=== PATIENT | female | born 1960 | race Caucasian/White ===

== ENCOUNTER 2017-11-11 20:52 | Inpatient (IN) | payer OTHER ==
[2017-11-11] MEDS ORDERED: ONDANSETRON 4 MG/2 ML VIAL ONE (21:41)
[2017-11-11] MEDS ORDERED: MORPHINE 4 MG/ML SYR ONE (21:41)
[2017-11-12] MEDS ORDERED: MORPHINE 4 MG/ML SYR ONE (00:16)
--- NOTE | 2017-11-12 02:40 | EDPHYS ---
Physician Documentation [facility] Name: Khushbu Jamil Age: 57 yrs Sex: Female : 1960 Arrival Date: 11/11/2017 Time: 20:53 Bed 4 Private MD: ED Physician Ramin Humphries HPI: 11/12 01:44 This 57 yrs old Female presents to ER via EMS with complaints of Fall Injury. 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 Pain rated moderate and localized to left ps1 wrist and lower extremity knee and ankle. Not on blood thinners. . Historical: - Allergies: 11/11 21:02 Sulfa (Sulfonamide Antibiotics); bb - Home Meds: 21:02 insulin pump with humalog [Active]; losartan oral oral [Active]; Metoprolol Tartrate bb Oral [Active]; levothyroxine 125 mcg tab 1 tab once daily [Active]; vit D3 [Active]; - PMHx: 21:02 Hypertension; Diabetes - IDDM; Hypothyroidism; diabetic retinopathy; bb - PSHx: 21:02 Hysterectomy; strabismus; bb - Immunization history:: Adult Immunizations up to date. - Social history:: Smoking status: Patient/guardian denies using tobacco, Patient/guardian denies using alcohol, street drugs. ROS: 11/12 01:44 Constitutional: Negative for fever, chills, and weight loss, Eyes: Negative for injury, ps1 pain, redness, and discharge, ENT: Negative for injury, pain, and discharge, Cardiovascular: Negative for chest pain, palpitations, and edema, Respiratory: Negative for shortness of breath, cough, wheezing, and pleuritic chest pain, Abdomen/GI: Negative for abdominal pain, nausea, vomiting, diarrhea, and constipation, Back: Negative for injury and pain. MS/extremity: Positive for contusion, decreased range of motion, of the left wrist, left knee, and ankle. Exam: 01:44 Constitutional: This is a well developed, well nourished patient who is awake, alert, ps1 and in no acute distress. Head/Face: Normocephalic, atraumatic. Eyes: Pupils equal round and reactive to light, extra-ocular motions intact. Lids and lashes normal. Conjunctiva and sclera are non-icteric and not injected. Neck: Trachea midline, no thyromegaly or masses palpated, and no cervical lymphadenopathy. Supple, full range of motion without nuchal rigidity, or vertebral point tenderness. No Meningismus. Chest/axilla: Normal chest wall appearance and motion. Nontender with no deformity. No lesions are appreciated. Cardiovascular: Regular rate and rhythm. No gallops, murmurs, or rubs. Normal PMI, no JVD. No pulse deficits. Respiratory: Lungs have equal breath sounds bilaterally, clear to auscultation and percussion. No rales, rhonchi or wheezes noted. No increased work of breathing, no retractions or nasal flaring. Abdomen/GI: Soft, non-tender, with normal bowel sounds. No distension or tympany. No guarding or rebound. No evidence of tenderness throughout. 01:44 Musculoskeletal/extremity: Extremities: grossly normal except: noted in the left arm: contusion, decreased ROM, pain, noted in the left knee: contusion, decreased ROM, pain. Vital Signs: 11/11 21:02 BP 155 / 76; Pulse 96; Resp 20 S; Temp 97.4(TE); Pulse Ox 100% on R/A; Weight 90.72 kg bb (R); Height 5 ft. 0 in. (152.40 cm) (R); Pain 9/10; 21:59 BP 143 / 57; Pulse 86; Resp 18; Pulse Ox 99% on NC; aa1 23:00 BP 153 / 92; Pulse 67; Resp 18; Pulse Ox 98% 0 lpm ; mg2 23:58 BP 148 / 87; Pulse 80; Resp 18; Pain 6/10; mg2 11/12 01:14 BP 154 / 60; Pulse 98; Resp 16; Pulse Ox 97% on R/A; aa1 02:08 BP 154 / 62; Pulse 91; Resp 18; Pulse Ox 96% on R/A; aa1 02:43 BP 154 / 60; Pulse 98; Resp 18; Pulse Ox 99% ; aa1 03:45 BP 162 / 66; Pulse 94; Resp 16; Pulse Ox 95% on R/A; aa1 11/11 21:02 Body Mass Index 39.06 (90.72 kg, 152.40 cm) bb MDM: 11/11 22:57 Patient medically screened. ps1 11/12 01:44 Data reviewed: vital signs, nurses notes, radiologic studies. ED course: pain ps1 controlled. Splinted with cockup splint on wrist and knee immobilizer and ortho boot on left. . 11/12 03:14 Order name: CBC with Automated Diff EDOH 11/12 03:14 Order name: CBC with Automated Diff EDOH 11/11 21:33 Order name: Forearm Left XRAY ps1 11/11 21:33 Order name: Tib Fib Left XRAY ps1 11/12 03:14 Order name: Comprehensive Metabolic Panel EDOH 11/12 03:14 Order name: Comprehensive Metabolic Panel EDOH 11/12 03:14 Order name: CONS Pharmacy Consult EDOH 11/12 03:14 Order name: Physical Therapy Consult EDOH 11/12 03:14 Order name: Regular EDOH Administered Medications: 11/11 22:00 Drug: morphine 4 mg Route: IVP; Site: right hand; mg2 23:47 Follow up: Response: No adverse reaction; Pain is decreased mg2 22:00 Drug: Zofran 4 mg Route: IVP; Site: right hand; mg2 23:46 Follow up: Response: No adverse reaction; No change in condition; Nausea is decreased mg2 11/12 00:22 Drug: morphine 4 mg Route: IVP; Site: right hand; mg2 02:46 Follow up: Response: No adverse reaction; Pain is decreased aa1 Disposition: 11/12/17 02:40 Hospitalization ordered by Melinda Whitley for Observation. Preliminary diagnosis is left distal radius fracture. left tibial plateu fracture. Inability to ambulate. . - Bed requested for Telemetry/MedSurg (observation). - Status is Observation. aa1 - Condition is Fair. - Problem is new. - Symptoms are unchanged. UTI on Admission? No Signatures: Dispatcher [employer] EDOH Shanthi Ronquillo RN RN mw Kern, Alissa, RN RN aa1 Marcia Tinajero RN RN bb Singer, Phillip, MD MD ps1 Roland Blanco RN RN mg2
--- NOTE | 2017-11-12 02:40 | ER ---
Nurse's Notes [facility] Name: Khushbu Jamil Age: 57 yrs Sex: Female : 1960 Arrival Date: 11/11/2017 Time: 20:53 Bed 4 Private MD: Diagnosis: left distal radius fracture. left tibial plateu fracture. Inability to ambulate. Presentation: 11/11 20:50 Presenting complaint: EMS states: pt was at an event outside tripped on a curb and fell bb onto her left knee and wrist now has pain and swelling to left knee and wrist pt denies LOC and did not hit her head. Transition of care: patient was not received from another setting of care. Onset of symptoms was November 11, 2017. Initial Sepsis Screen: Does the patient meet any 2 criteria? No. Patient's initial sepsis screen is negative. Does the patient have a suspected source of infection? No. Patient's initial sepsis screen is negative. Care prior to arrival: Splint applied. 20:50 Method Of Arrival: EMS: [facility] bb 20:50 Acuity: BETTIE 3 bb Historical: - Allergies: 21:02 Sulfa (Sulfonamide Antibiotics); bb - Home Meds: 21:02 insulin pump with humalog [Active]; losartan oral oral [Active]; Metoprolol Tartrate bb Oral [Active]; levothyroxine 125 mcg tab 1 tab once daily [Active]; vit D3 [Active]; - PMHx: 21:02 Hypertension; Diabetes - IDDM; Hypothyroidism; diabetic retinopathy; bb - PSHx: 21:02 Hysterectomy; strabismus; bb - Immunization history:: Adult Immunizations up to date. - Social history:: Smoking status: Patient/guardian denies using tobacco, Patient/guardian denies using alcohol, street drugs. Screenin:03 Abuse screen: Denies threats or abuse. Nutritional screening: No deficits noted. bb Tuberculosis screening: No symptoms or risk factors identified. Fall Risk Fall in past 12 months (25 points). Secondary diagnosis (15 points) impaired mobility, IV access (20 points). Ambulatory Aid- None/Bed Rest/Nurse Assist (0 pts). Gait- Impaired (20 pts.). Mental Status- Oriented to own ability (0 pts). Total Puentes Fall Scale indicates High Risk Score (45 or more points). Fall prevention measures have been instituted. Side Rails Up X 2 As available patient and family educated on Fall Prevention Program and Strategies. Assessment: 21:13 General: Appears in no apparent distress. comfortable, Behavior is calm, cooperative, mg2 appropriate for age, quiet. Pain: Complains of pain in left forearm and leg lower leg Pain currently is 10 out of 10 on a pain scale. Neuro: No deficits noted. Oriented to person, place, time, situation. Cardiovascular: Patient's skin is warm and dry. Respiratory: Airway is patent Respiratory effort is even, unlabored. Derm: Skin Skin is Skin is pink, warm \T\ dry. Musculoskeletal: with bandage on left arm and splint left leg. Injury Description:. 21:49 Reassessment: Patient appears in no apparent distress at this time. Patient and/or aa1 family updated on plan of care and expected duration. Pain level reassessed. Patient is alert, oriented x 3, equal unlabored respirations, skin warm/dry/pink. radiology at bedside for x-rays. 23:32 Reassessment: Patient and/or family updated on plan of care and expected duration. Pain mg2 level reassessed. patient sleeping comfortably on bed. 11/12 00:01 Reassessment: patient verbalizes pain in the left leg for 6/10. mg2 01:10 Reassessment: Patient appears in no apparent distress at this time. Patient and/or aa1 family updated on plan of care and expected duration. Pain level reassessed. Patient is alert, oriented x 3, equal unlabored respirations, skin warm/dry/pink. Pt awaiting splinting and reassessment. 02:44 Reassessment: patient was unable to to go down from the bed and bear weight on her own. aa1 was advised to be seen by hospitalist for possible admission. 04:23 Reassessment: Patient appears in no apparent distress at this time. Patient is alert, aa1 oriented x 3, equal unlabored respirations, skin warm/dry/pink. Report given to Vaishnavi on 2nd floor. Vital Signs: 11/11 21:02 BP 155 / 76; Pulse 96; Resp 20 S; Temp 97.4(TE); Pulse Ox 100% on R/A; Weight 90.72 kg bb (R); Height 5 ft. 0 in. (152.40 cm) (R); Pain 9/10; 21:59 BP 143 / 57; Pulse 86; Resp 18; Pulse Ox 99% on NC; aa1 23:00 BP 153 / 92; Pulse 67; Resp 18; Pulse Ox 98% 0 lpm ; mg2 23:58 BP 148 / 87; Pulse 80; Resp 18; Pain 6/10; mg2 11/12 01:14 BP 154 / 60; Pulse 98; Resp 16; Pulse Ox 97% on R/A; aa1 02:08 BP 154 / 62; Pulse 91; Resp 18; Pulse Ox 96% on R/A; aa1 02:43 BP 154 / 60; Pulse 98; Resp 18; Pulse Ox 99% ; aa1 03:45 BP 162 / 66; Pulse 94; Resp 16; Pulse Ox 95% on R/A; aa1 11/11 21:02 Body Mass Index 39.06 (90.72 kg, 152.40 cm) bb ED Course: 11/11 20:53 Patient arrived in ED. ds1 21:00 Triage completed. bb 21:02 Arm band placed on right wrist. Patient placed in an exam room, on a stretcher, on bb pulse oximetry. Affected limb iced. 21:04 Patient has correct armband on for positive identification. Bed in low position. Call bb light in reach. Side rails up X2. Pulse ox on. NIBP on. 21:07 Roland Blanco, ANITHA is Primary Nurse. mg2 21:12 Ramin Humphries MD is Attending Physician. ps1 21:13 Warm blanket given. mg2 21:37 No provider procedures requiring assistance completed. Inserted saline lock: 22 gauge mg2 in right hand, using aseptic technique. 22:08 Forearm Left XRAY In Process Unspecified. EDMS 22:08 Tib Fib Left XRAY In Process Unspecified. EDMS 11/12 01:35 Jose J wrap to left wrist pre-formed cock-up splint applied to L wrist. aa1 02:25 Knee immobilizer applied on right knee. ortho boots on the right leg. aa1 02:39 Melinda Whitley MD is Hospitalizing Provider. ps1 04:23 Patient admitted, IV remains in place. aa1 Administered Medications: 11/11 22:00 Drug: morphine 4 mg Route: IVP; Site: right hand; mg2 23:47 Follow up: Response: No adverse reaction; Pain is decreased mg2 22:00 Drug: Zofran 4 mg Route: IVP; Site: right hand; mg2 23:46 Follow up: Response: No adverse reaction; No change in condition; Nausea is decreased mg2 11/12 00:22 Drug: morphine 4 mg Route: IVP; Site: right hand; mg2 02:46 Follow up: Response: No adverse reaction; Pain is decreased aa1 Outcome: 02:40 Decision to Hospitalize by Provider. ps1 04:23 Admitted to Med/surg accompanied by tech, via stretcher, room 207, with chart, Report aa1 called to Vaishnavi 04:23 Condition: good 04:23 Instructed on the need for admit, Demonstrated understanding of instructions. 04:27 Patient left the ED. aa1 Signatures: Dispatcher [employer] EDMS Viktoriya Murrieta RN RN aa1 Sharla Edwards ds1 Marcia Tinajero RN RN bb Ramin Humphries MD MD ps1 Roland Blnaco RN RN mg2 Corrections: (The following items were deleted from the chart) 11/11 21:08 21:02 BP 155 / 76; Pulse 96bpm; Resp 100bpm; Spontaneous; Pulse Ox 100% RA; Temp 97.4F bb Temporal; 90.72 kg Reported; Height 5 ft. 0 in. Reported; BMI: 39.0; Pain 9/10; bb
[2017-11-12] MEDS ORDERED: ACETAMINOPHEN 500 MG TAB PO PRN (03:12)
[2017-11-12] MEDS ORDERED: MORPHINE 2 MG/ML SYR IV PRN (03:12)
[2017-11-12] MEDS: NA CHLORIDE 0.9% 1,000 ML IV SCH ×2 (04:24→17:45)
[2017-11-12] MEDS ORDERED: Morphine 2 MG/2 ML SYR IV PRN (05:00)
[2017-11-12] MEDS: Morphine 2 MG/2 ML SYR IV PRN ×5 (05:13→21:28)
[2017-11-12] MEDS: ONDANSETRON 4 MG/2 ML VIAL IV PRN ×2 (05:13→08:50)
[2017-11-12 05:53] LABS: Urine Appearance CLEAR; Urine Bilirubin NEGATIVE (NEG); Urine Blood 1+ (NEG); Urine Color YELLOW; Urine Glucose 3+ (NEG); Urine Protein NEGATIVE (NEG); Urine Specific Gravity >=1.030 (1.005-1.030); Urine pH 5.5 (5.0-7.0)
[2017-11-12 05:54] LABS: Urine Microscopic Reflex ORDER UMIC
[2017-11-12] MEDS ORDERED: LEVOTHYROXINE SOD 0.088 MG TAB PO SCH (06:00)
[2017-11-12] MEDS: LEVOTHYROXINE SOD 0.125 MG TAB PO SCH (06:13)
[2017-11-12 06:15] LABS: Absolute Lymphocytes (CBC) 1.5 K/uL (0.7-4.9); Absolute Monocytes 0.8 K/uL (0.1-1.3); Absolute Neutrophil 9.1 K/uL (1.8-8.0); Basophils % 0.5 % (0-1.3); Eosinophils % 0.3 % (0-4.4); Hematocrit 33.7 % (36.0-45.0); Lymphocytes % 13.2 % (15.3-44.8); MCV 87.3 fL (80-100); MPV 10.9 fL (7.6-11.3); Monocytes % 7.1 % (3.3-12.3); RBC Red Blood Cell Count 3.86 M/uL (3.86-4.86)
[2017-11-12 06:20] LABS: Urine Bacteria <20 /HPF (<20); Urine RBC <5 /HPF (NONE SEEN)
[2017-11-12 06:21] LABS: Urine Culture Reflex Order NOT NEEDED
[2017-11-12 07:02] LABS: Albumin 3.7 g/dL (3.2-5.5); Potassium 4.5 mEq/L (3.6-5.0); Protein, Total 6.6 g/dL (6.0-8.3)
--- NOTE | 2017-11-12 08:44 | P.HP ---
Certification for Inpatient Patient admitted to: Observation With expected LOS: <2 Midnights Patient will require the following post-hospital care: None Practitioner: I am a practitioner with admitting privileges, knowledge of patient current condition, hospital course, and medical plan of care. Services: Services provided to patient in accordance with Admission requirements found in Title 42 Section 412.3 of the Code of Federal Regulations Patient History Date of Service: 11/12/17 Reason for admission: status post fall with radial fracture and tibial plateau fracture History of Present Illness: Patient is a 57-year-old female who presents to the hospital after falling. Patient was at the [employer] listening to a [employer]. The left half way through the concert and when they were turning a corner she slipped on a curb and fell on her left side. She suffered a distal left radial fracture as well as a left tibial plateau fracture. Her left leg was immobilized and she had a splint placed on her left upper extremity. Patient will be admitted to the hospital for further evaluation to assist with discharge planning. Patient tried to walk in the emergency room but was unable to ambulate. She will either need a specialized crutch or a wheelchair to get around. She will need DVT prophylaxis and strict blood pressure control. Anticipate discharge home in 24-48 hours. Allergies Sulfa (Sulfonamide Antibiotics) Allergy (Intermediate, Verified 11/12/17 05:28) Shortness of breath Home Medications: Cholecalciferol (Vitamin D3) [Vitamin D3] 1,000 unit PO DAILY 06/02/15 Losartan Potassium [Cozaar] 100 mg PO DAILY 06/02/15 Metoprolol Tartrate [Lopressor] 25 mg PO BID 06/02/15 Insulin Lispro [Humalog*] See Protocol SQ ACHS 11/12/17 Levothyroxine [Synthroid] 125 mcg PO [id number] 11/12/17 Omeprazole [Prilosec] 40 mg PO DAILY 11/12/17 - Past Medical/Surgical History Has patient received pneumonia vaccine in the past: Yes Diabetic: Yes -: HTN -: DM -: Hypothyroidism -: Diabetic Retinopathy -: Macular Edema -: Hysterectomy -: Strabismus - Family History Mother Medical History: Kidney disease Father Medical History: Lung disease Notes: COPD Brother Medical History: Cancer Notes: bladder cancer and Hep C - Social History Smoking Status: Never smoker Alcohol use: No CD- Drugs: No Caffeine use: Yes Place of Residence: Home Review of Systems 10-point ROS is otherwise unremarkable Physical Examination - Vital Signs Temperature: 98.3 F Blood Pressure: 130/58 Pulse: 113 Respirations: 16 Pulse Ox (%): 96 - Physical Exam General: Alert, In no apparent distress, Oriented x3 HEENT: Atraumatic, PERRLA, Mucous membr. moist/pink, EOMI, Sclerae nonicteric Neck: Supple, 2+ carotid pulse no bruit, No LAD, Without JVD or thyroid abnormality Respiratory: Clear to auscultation bilaterally, Normal air movement Cardiovascular: Regular rate/rhythm, Normal S1 S2, No murmurs Gastrointestinal: Normal bowel sounds, Soft and benign, Non-distended, No tenderness Musculoskeletal: No tenderness Integumentary: No rashes Neurological: Normal gait, Normal speech, Normal strength at 5/5 x4 extr, Normal tone, Sensation intact, Cranial nerves 3-12 intact, Normal affect Lymphatics: No axilla or inguinal lymphadenopathy Assessment & Plan - Problems (Diagnosis) (1) Status post fall Current Visit: Yes Status: Acute (2) Left medial tibial plateau fracture Current Visit: Yes Status: Acute (3) Fracture of left distal radius Current Visit: Yes Status: Acute (4) History of hypertension Current Visit: Yes Status: Acute - Plan Plan: 1. IV hydration 2. Pain control 3. monitor vital signs closely 4. Monitor H&H and renal function 5. Physical therapy evaluation 6. Orthopedic evaluation 7. Crutch training 8. GI and DVT prophylaxis Discharge Plan: Home Plan to discharge in: Greater than 2 days - Advance Directives Does patient have a Living Will: No Does patient have a Durable POA for Healthcare: No - Code Status/Comfort Care Code Status Assessed: Yes Code Status: Full Code Critical Care: No Time Spent Managing PTS Care (In Minutes): 45
[2017-11-12] MEDS: LOSARTAN POTASSIUM 50 MG TABLET PO SCH (08:50)
[2017-11-12] MEDS: METOPROLOL TAR 25 MG TAB PO SCH ×2 (08:50→21:27)
[2017-11-12] MEDS: VITAMIN D 1000 UNIT TAB PO SCH (08:51)
[2017-11-12] MEDS: ENOXAPARIN 30 MG/0.3 ML SQ SCH ×2 (10:00→21:28)
--- NOTE | 2017-11-12 10:46 | RAD REPORT ---
EXAM DESCRIPTION: RAD - Tib Fib Left - 11/11/2017 10:10 pm CLINICAL HISTORY: Fall, knee pain COMPARISON: None. FINDINGS: Lucency is present involving the lateral tibial plateau with cortical irregularity, compat ible with a tibial plateau fracture. Moderate joint effusion is suspected. IMPRESSION: Nondisplaced tibial plateau fracture.
--- NOTE | 2017-11-12 10:47 | RAD REPORT ---
EXAM DESCRIPTION: RAD - Forearm Left - 11/11/2017 10:09 pm CLINICAL HISTORY: Fall, wrist pain COMPARISON: None. FINDINGS: Impacted fracture of the distal radial metaphysis is noted. No dislocation is seen.
--- NOTE | 2017-11-12 16:33 | P.CNS ---
Date of Consult: 11/12/17 Reason for Consult: tibia fracture Chief Complaint: status post fall with radial fracture and tibial plateau fracture History of Present Illness: 57 y/o female was in the [place] she rtipped on the curb and had severe pain in her left tibia and left wrist, agricultural economics professor found her and called EMS, she was seen in the ED and diagnosed with a tibial plateau fracture and left distal radius fracture. she is in a knee immobilizer. her pain is 7/10 she has a lef t wrist splint Allergies Sulfa (Sulfonamide Antibiotics) Allergy (Intermediate, Verified 11/12/17 05:28) Shortness of breath Home Medications: Cholecalciferol (Vitamin D3) [Vitamin D3] 1,000 unit PO DAILY 06/02/15 Losartan Potassium [Cozaar] 100 mg PO DAILY 06/02/15 Metoprolol Tartrate [Lopressor] 25 mg PO BID 06/02/15 Insulin Lispro [Humalog*] See Protocol SQ ACHS 11/12/17 Levothyroxine [Synthroid] 125 mcg PO [id number] 11/12/17 Omeprazole [Prilosec] 40 mg PO DAILY 11/12/17 - Past Medical/Surgical History Diabetic: Yes -: HTN -: DM -: Hypothyroidism -: Diabetic Retinopathy -: Macular Edema -: Hysterectomy -: Strabismus - Family History Mother Medical History: Kidney disease Father Medical History: Lung disease Notes: COPD Brother Medical History: Cancer Notes: bladder cancer and Hep C - Social History Alcohol use: No CD- Drugs: No Caffeine use: Yes Place of Residence: Home Review of Systems 10-point ROS is otherwise unremarkable Physical Examination Temp Pulse Resp BP Pulse Ox 98.8 F 118 H 16 126/57 L 92 11/12/17 12:00 11/12/17 12:00 11/12/17 12:00 11/12/17 12:00 11/12/17 12:00 General: Alert, In no apparent distress, Oriented x3 HEENT: Atraumatic, Normocephalic Neck: Supple Respiratory: Normal air movement Capillary refill: <2 Seconds Gastrointestinal: Soft and benign Musculoskeletal: Other (left proximal tibia pain and left wrist pain) Imagings Data: 4 v left tibia- non displaced tibial plateau fracture in the medial compartment of the left knee, intra articular. left rrist 2 v- fracture distal radius non-displaced, impacted - Problems (1) Fracture of left distal radius Onset Date: 11/11/17 Current Visit: Yes Status: Acute Plan: PT will work with her on mobility with wither a platform walker or wheelchair non weight baring on the left leg and wrist. we will treat her out patient. follow up in the office in 1 week. she can be discharged now. (2) Left medial tibial plateau fracture Current Visit: Yes Status: Acute
--- NOTE | 2017-11-12 21:13 | HP ---
Date of Admission: 11/12/2017 Chief Complaint: Fall and injury. History Of Present Illness: This is a 57-year-old female patient of mine, who was at a local event a t a concert and she actually was walking outside the [facility] and her shoe got caugh t on a sidewalk area, she lost her balance, and fell forward. She injured her left upper and left lo wer extremity. Her was with her and there were 2-3 other people close by, they all tried to help her to get up. She was not able to get up, so ambulance was called and she was brought into the emergency room. After workup done in the emergency room, she was admitted to the hospital. I saw h er this morning before this visit. She was in her room lying in bed, not in any distress. She denie s any head injury or any loss of consciousness. Medications: List reviewed. Review of Systems: Musculoskeletal: As mentioned above. All other systems reviewed and negative. Allergies: TO SULFA. Past Medical History: Hypertension, type 1 diabetes mellitus, diabetic retinopathy, and hypothyroidi sm. Past Surgical History: Significant for eye surgery and hysterectomy. Family History: Not pertinent. Social History: Negative for smoking and alcohol use. Physical Examination: Vital Signs: Height 5 feet, weight 205 pounds. Last temperature 98.3, pulse 113, respiratory rate 1 6, blood pressure 130/58. Oxygen saturation 96%. General: Awake, alert, oriented, not in distress. HEENT: Head atraumatic, normocephalic. Conjunctivae nonerythematous. Sclerae white. Mouth, no thr ush or edema noted. Ears/Nose, no mass, lesion, discharge noted. Neck: Supple. No JVD, lymph nodes, bruit, thyromegaly noted. Lungs: Bilateral good equal air entry. Clear to auscultation. No rhonchi. No rales. Heart: Normal heart sounds, no murmur or gallop. Abdomen: Soft, bowel sounds normal. No guarding, rigidity, tenderness, mass, hepatosplenomegaly, dis tention, or bruit noted. Extremities: Left upper and left lower extremity has dressing present. Skin: No rash, ulcer, cellulitis. Lymphatics: No lymph node enlargement in neck, supraclavicular, infraclavicular region. Neuro: No focal neurological deficit. Chest: Unremarkable. External Genitalia: Deferred. Rectal: Deferred. Laboratory Data: White count 11.5, hemoglobin 11.2, platelets 260. Sodium 133, potassium 4.5, chlor ziggy 103, bicarb 26, BUN 23, creatinine 0.80, glucose 222. Liver function tests unremarkable. Hemogl obin A1c pending. Urinalysis; negative except 1+ blood, 1+ ketones, 3+ glucose. Impression: 1.Fracture of left tibial plateau. 2.Fracture of left distal radius. 3.Anemia, unspecified. 4.Hyponatremia. 5.Type 1 diabetes mellitus, uncontrolled. 6.Hypertension. 7.Hypothyroidism. Plan: Admit the patient to hospital for further evaluation and management of this problem. The bladimir ent is appropriate for inpatient and is expected to spend 2 midnights in hospital. We will go ahead and consult orthopedic surgeon. Continue home medications per order. DVT prophylaxis will be given using Lovenox. The patient will be treated with conservative treatment unless Orthopedic surgeon has recommendation for surgery. We will consult physical therapy, occupational therapy and I will see er tomorrow for followup. She is on insulin pump at home and this is being controlled by her diabete s specialist and she does not know exact dose on basal insulin but mealtime insulin bolus, she is not sure but she takes either 15 or 20 units of insulin at meal time per carb count and I have advised h er that she needs to look into it exactly how much insulin she takes at mealtime and she should cut b ack 5 units from her dose, so if she is taking 20 units then she will take 15 units and if she is mare ing 15 units she will take only 10 units and she verbalized understanding. She checks her blood suga r before each meal and at bedtime. She will continue to do so. She has her glucometer with her and she will also check her blood sugar on a p.r.n. basis in the event if she has any symptoms indicating hypoglycemia. She was advised to notify nurse right away if she has any hypoglycemia problem so sallie t way nursing staff can assist her with treatment of hypoglycemia and I have also ordered nursing sta ff to document the patient's blood sugar readings a.c. and at bedtime and treat hypoglycemia per prot ocol if that happens. I will see her tomorrow for followup. SERGIO/MODL Voice ID: [id number]
[2017-11-12] MEDS: DOCUSATE NA 100 MG CAP PO SCH (21:28)
[2017-11-13] MEDS: Morphine 2 MG/2 ML SYR IV PRN ×2 (01:10→05:47)
[2017-11-13] MEDS: LEVOTHYROXINE SOD 0.125 MG TAB PO SCH (05:46)
[2017-11-13] MEDS: NA CHLORIDE 0.9% 1,000 ML IV SCH ×2 (05:47→19:57)
[2017-11-13 07:46] LABS: A1c Component 0.6 mg/dL
[2017-11-13] MEDS: HYDROCODONE/APAP 10/325 TAB PO PRN ×3 (08:47→21:09)
[2017-11-13] MEDS: DOCUSATE NA 100 MG CAP PO SCH ×2 (08:48→21:09)
[2017-11-13] MEDS: VITAMIN D 1000 UNIT TAB PO SCH (08:48)
[2017-11-13] MEDS: LOSARTAN POTASSIUM 50 MG TABLET PO SCH (08:48)
[2017-11-13] MEDS: METOPROLOL TAR 25 MG TAB PO SCH ×2 (08:48→20:38)
[2017-11-13] MEDS: ENOXAPARIN 30 MG/0.3 ML SQ SCH ×2 (08:49→21:09)
--- NOTE | 2017-11-13 14:12 | PN ---
Date of Progress Note: 11/13/2017 Subjective: The patient was seen this morning for followup. Lying in bed, not in any distress. No new complaints or problems reported by patient except complaining of pain in her left upper and left lower extremity. After I saw her yesterday, the patient's day was unremarkable. She has not gotten out of bed as Physical Therapy or Occupational Therapy has not come by to evaluate her. Dr. Pate 's physician employment assistant came by to see the patient and has suggested for patient to have nonweightbear ing to lower extremity and follow up at office in 1 week. Objective: Vital Signs: Reviewed. HEENT: Examination unremarkable. Lungs: Clear to auscultation. Heart: Sounds normal. Abdomen: Soft, bowel sounds normal. No guarding, rigidity, tenderness, or distention. Extremities: No edema of right leg, left upper and left lower extremity. Lower extremity knee immob ilizer present, left upper extremity. Partial cast with dressing present. Impression: 1.Fracture of left distal radius and fracture of left tibial plateau. 2.Type 1 diabetes mellitus. 3.Hypertension. Plan: We will continue current medications. Continue pain medication. DVT prophylaxis with Lovenox . The patient is at high risk from having DVT, and so we will have to continue Lovenox at least for 4-6 weeks and I did talk to her about that. The patient lives at home. Her does not work, s o he might be able to help her out depending on his physical health. We will have to have social wor ker help make arrangements for patient discharge planning if she can go home with some help at home, and the most important thing is we need therapy's evaluation and recommendation. If the patient will be able to ambulate considering nonweightbearing of the left lower extremity or she will have to sta y in wheelchair until her weight bearing status is changed by orthopedic surgeon in the future. I will see her tomorrow for followup. SERGIO/MODL Voice ID: [id number] Report ID: [id number]
[2017-11-14] MEDS: HYDROCODONE/APAP 10/325 TAB PO PRN ×4 (02:57→21:02)
[2017-11-14 05:09] VITALS: BMI 37.3
[2017-11-14] MEDS: LEVOTHYROXINE SOD 0.125 MG TAB PO SCH (05:35)
[2017-11-14 08:04] LABS: Absolute Lymphocytes (CBC) 2.4 K/uL (0.7-4.9); Absolute Monocytes 0.7 K/uL (0.1-1.3); Absolute Neutrophil 2.8 K/uL (1.8-8.0); Basophils % 1.3 % (0-1.3); Eosinophils % 4.4 % (0-4.4); Hematocrit 34.4 % (36.0-45.0); Lymphocytes % 38.2 % (15.3-44.8); MCV 87.5 fL (80-100); MPV 10.3 fL (7.6-11.3); Monocytes % 11.3 % (3.3-12.3); RBC Red Blood Cell Count 3.94 M/uL (3.86-4.86)
[2017-11-14 08:47] LABS: Bicarbonate 26 mEq/L (21-31); Glucose Level 61 mg/dL (65-120); Potassium 3.6 mEq/L (3.6-5.0); Sodium Level 139 mEq/L (135-145)
[2017-11-14 08:48] LABS: BUN Blood Urea Nitrogen 10 mg/dL (6-20); Magnesium 1.9 mg/dL (1.8-2.5)
[2017-11-14] MEDS: ENOXAPARIN 40 MG/0.4 ML SQ SCH (09:02)
[2017-11-14] MEDS: LOSARTAN POTASSIUM 50 MG TABLET PO SCH (09:02)
[2017-11-14] MEDS: METOPROLOL TAR 25 MG TAB PO SCH ×2 (09:02→21:03)
[2017-11-14] MEDS: DOCUSATE NA 100 MG CAP PO SCH ×2 (09:02→21:03)
[2017-11-14] MEDS: VITAMIN D 1000 UNIT TAB PO SCH (09:02)
--- NOTE | 2017-11-14 11:56 | P.PN ---
Subjective Date of Service: 11/14/17 Chief Complaint: status post fall with radial fracture and tibial plateau fracture Subjective: No new changes, No C/O voiced Review of Systems 10-point ROS is otherwise unremarkable Physical Examination - Vital Signs Temperature: 97.5 F Blood Pressure: 138/62 Pulse: 91 Respirations: 18 Pulse Ox (%): 95 - Physical Exam General: Alert, In no apparent distress, Oriented x3 HEENT: Atraumatic, Normocephalic Musculoskeletal: Other (left wrist and knee pain in knee immobilizer) Assessment And Plan - Current Problems (Diagnosis) (1) Fracture of left distal radius Onset Date: 11/11/17 Current Visit: Yes Status: Acute Plan: PT will work with her on mobility with wither a platform walker or wheelchair non weight baring on the left leg and wrist. we will treat her out patient. follow up in the office in 1 week. she can be discharged now. (2) Left medial tibial plateau fracture Current Visit: Yes Status: Acute
--- NOTE | 2017-11-14 23:46 | PN ---
Date of Progress Note: 11/14/2017 Subjective: The patient was seen this morning for followup. Lying in bed, not in distress. The pat deacon says that she did not do well with physical therapy as far as ambulation is concerned and Physic al Therapy has suggested her to stay in the wheelchair while she is not allowing to put any weight on her leg. No nausea or vomiting. No chest pain. No shortness of breath. Her pain is well controll ed with current hydrocodone. Objective: Vital signs: Reviewed. HEENT: Unremarkable. Lungs: Clear to auscultation. Heart: Sounds normal. Abdomen: Soft. Bowel sounds normal. No guarding, rigidity, tenderness, or distention. Extremities: No leg edema. Impression: 1.Fracture of left distal radius. 2.Fracture of left tibial plateau. 3.Type 1 diabetes mellitus. 4.Hypertension. Plan: We will go ahead and continue current medications. Continue Lovenox. I have changed the Love nox to 40 mg subcutaneous injection daily and nurse was advised to instruct the patient how to give L ovenox injection and while in the hospital allow the patient to do herself injection of Lovenox. Upo n discharge from the hospital, she should continue Lovenox at least for a month. Social Service cons ultation was requested for wheelchair arrangements. The patient says that her has already pu rchased bedside commode. Prescription for [place] 10 mg was picked up by the patient's from my office today and it is for 50 tablets 1 tablet 4 times a day as needed for pain. Once wheelchair ar rangement gets completed, then we will be able to discharge her to go home with outpatient office as well as with Dr. Pate. SERGIO/MODL Voice ID: [id number] Report ID: [id number]
[2017-11-15] MEDS: LEVOTHYROXINE SOD 0.125 MG TAB PO SCH (05:32)
[2017-11-15] MEDS: HYDROCODONE/APAP 10/325 TAB PO PRN ×2 (05:34→11:12)
[2017-11-15] MEDS: METOPROLOL TAR 25 MG TAB PO SCH (09:48)
[2017-11-15] MEDS: VITAMIN D 1000 UNIT TAB PO SCH (09:48)
[2017-11-15] MEDS: ENOXAPARIN 40 MG/0.4 ML SQ SCH (09:48)
[2017-11-15] MEDS: DOCUSATE NA 100 MG CAP PO SCH (09:48)
[2017-11-15] MEDS: LOSARTAN POTASSIUM 50 MG TABLET PO SCH (09:48)
[2017-11-15 11:48] VITALS: O2SAT 95
[2017-11-15 13:18] VITALS: BP 150/66; TEMP 97.7
--- NOTE | 2017-11-16 19:53 | DS ---
Date of Discharge: 11/15/2017 The patient was seen this morning for followup. Physical Examination: HEENT: Unremarkable. Lungs: Clear to auscultation. Heart: Sounds normal. Abdomen: Soft, bowel sounds normal. No guarding, rigidity, tenderness, or distention. Extremities: No edema of right leg. Left leg knee immobilizer present. Left upper extremity partia l cast present. Laboratory Data: Yesterday white count 6.2, hemoglobin 11.8, platelets 226. Sodium 139, potassium 3 .6, chloride 108, bicarb 26, BUN 10, creatinine 0.62, glucose 61. Hemoglobin A1c 7.0. Liver functio n tests unremarkable. Done at the time of admission. Discharge Medications And Instructions: 1.Continue all prior home medications. 2.Take [place] 10 mg 1 tablet p.o. 4 times a day as needed for pain, and prescription was given to gabriel worthy for 50 tablets. No refill. 3.Lovenox injection 40 mg subcutaneous injection daily, #30. No refill. 4.Follow up at my office next week on 11/22/2017, at 10 a.[address] 5[address]Follow [address] Dr[address] Pate next week on Tuesday, and the patient to call his office to schedule appoi ntment. 6.Take [id number] stool softener. Senokot-S 2 tablets by mouth p.o. daily. 7.Do not put any weight on left leg. Hospital Course: A 57-year-old female patient, admitted to the hospital under my service after she f ell down. Please see dictated H and P for more information. The patient was at a local event at a [facility], and as she was walking outside her shoe got caught on a sidewalk area. She lost her bal ance, fell forward. She was not able to get up. After this ambulance was called. She was [facility] i [facility] the emergency room, where further evaluation revealed presence of fracture of the left distal rad ius and left tibial plateau fracture. She was admitted to the hospital. Orthopedic consultation was obtained from Dr. Pate. The patient was seen by orthopedic surgeon. No surgery was suggested. Conservative treatment was advised, and it was also advised the patient not to put any weight on her left lower extremity. She was not able to ambulate using a walker with help of Physical Therapy, so wheelchair use was suggested until her weight bearing status gets changed in the future. Social Ser vice consultation was requested to help make arrangements for wheelchair and after all the arrangemen ts completed today, she was discharged in stable condition. She has not had a bowel movement since h er admission to the hospital, so I did advise her to use stool softener as mentioned above. She is o n insulin pump which she continue to use it during this hospitalization and continue to monitor her s ugar closely. Her other medical problems remained stable. Final Diagnoses: 1.Fracture of left tibial plateau. 2.Fracture of left distal radius. 3.Anemia, unspecified. 4.Hyponatremia. 5.Type 1 diabetes mellitus. 6.Hypertension. 7.Hypothyroidism. SERGIO/MODL Voice ID: [id number] Report ID: [id number]
== END 2017-11-15 14:11 | disposition home health service (06) | DRG 563 ==
LOC: ER 20:52 → OBSVTOIN 11-12 03:26 → ERHOLD 11-12 03:26 → 2ND 11-12 03:48
PROVIDERS: ADMIT Internal Medicine; ATTEND Internal Medicine
DX: S82.142A Displaced bicondylar fracture of left tibia, initial encounter for closed fracture (principal); E87.1 Hypo-osmolality and hyponatremia; S52.502A Unspecified fracture of the lower end of left radius, initial encounter for closed fracture; W01.0XXA Fall on same level from slipping, tripping and stumbling without subsequent striking against object, initial encounter; Y92.838 Other recreation area as the place of occurrence of the external cause; D64.9 Anemia, unspecified; E10.9 Type 1 diabetes mellitus without complications; I10 Essential (primary) hypertension; E03.9 Hypothyroidism, unspecified; Z88.2 Allergy status to sulfonamides
CPT/HCPCS: 36415; 80048; 80053; 81003; 81015; 83036; 83735; 85025; 96374; 96375; 97163; 99285; G0378; J1650; J2270; J2405; J7030